=== PATIENT | male | born 1945 | race Caucasian/White ===

== ENCOUNTER 2024-03-29 12:29 | Emergency (ER) | payer MEDICARE, SELFPAY ==
[2024-03-29 12:35] VITALS: BP 141/67
[2024-03-29 12:56] VITALS: BP 135/71
[2024-03-29 13:00] VITALS: BP 128/65
[2024-03-29 13:08] LABS: % Basophils 0.2 % (0-2); % Eosinophils 0.2 % (0-6); % Immature Granulocytes 0.3 % (0-0.5); % Lymphocytes 14.4 % (20.5-51.1); % Monocytes 7.4 % (1.7-9.3); % Neutrophils 77.5 % (42.2-75.2); Absolute Lymphocytes 1.9 10^3/uL (1.2-3.4); Absolute Neutrophils 10.1 10^3/uL (1.4-6.5); Hematocrit 43.8 % (39.0-52.0); Hemoglobin 14.7 g/dL (13.0-18.0); Mean Corp Hgb Conc. 33.6 g/dL (33.0-37.0); Mean Corpuscular Hgb 31.4 pg (27.0-31.0); Mean Corpuscular Volume 93.6 fL (80.0-94.0); Mean Platelet Volume 10.1 fL (7.4-10.4); Nucleated Red Blood Cells % 0 % (-); Platelet Count 221 10^3/uL (130-400); Red Blood Cell Count 4.68 10^6/uL (4.70-6.10); Red Cell Dist. Width 13.4 % (11.5-14.5)
--- NOTE | 2024-03-29 13:15 | ED.GENMED ---
History of Present Illness
General
Chief Complaint: Abdominal Pain
Source: patient, spouse and family (Daughter)
Exam Limitations: none
Time Seen by Provider: 03/29/24 12:44
Nursing documentation reviewed up to this point in time: agreed with
Travel History
Have you had any contact with someone who has COVID-19?: No
Do you have any symptoms of coronavirus? Fever > 100 degrees, chills, cough, shortness of breath, sore throat, loss of taste or smell, muscle aches, or headache?: No
History of Present Illness
History of Present Illness:
78-year-old male with past medical history of COPD, dementia, hyperlipidemia who presents with his family (spouse and daughter) from home for evaluation of a change in mental status. Family have noticed some increasing level of confusion over the
past 3 days. This culminated yesterday in patient wandering away from home and not being able to find his way back�was ultimately found by police and escorted home; this has never happened to him before. They have noticed decreased appetite over
that period of time�they report despite pushing to eat he has not been taking food or beverage as much. This morning they noticed that he was increasingly weak/shaky and he was complaining to them all morning of lower abdominal pain and grabbing
his suprapubic region. They decided to bring him to the emergency room to be assessed. Here in the emergency room patient is very limited as a historian due to his dementia. When asked why he is here he says ' when asked why he is here he says 'I
just followed them here.' He denies any complaints on full review of systems including abdominal pain here.
Review of Systems
Review of Systems
Unable to obtain full review of systems at this time due to: dementia
Other source history: family
All Other Systems: Not applicable
Phy Exam
Physical Exam
Physical Exam:
General: Awake, alert, to person and place but not time; no acute distress
Head: Normocephalic, atraumatic
Eyes: Conjunctiva normal, EOMI, pupils equal round and reactive to light bilaterally
Throat: Airway intact, handling secretions
Neck: Trachea midline, supple without meningismus, no cervical spine tenderness
Lungs: Clear to auscultation bilaterally, no wheezing, rales, rhonchi
Heart: Regular rate and rhythm, no murmurs, gallops, or rubs
Abd: Soft, non distended, nontender to deep palpation with no palpable masses
Neuro: Cranial nerves grossly intact, speech fluid, no gross motor or sensory deficits
Skin: no rash or signs of trauma
Extremities: Atraumatic, moving all extremities equally, good pulses in his distal extremities
Scores
Heart Failure Risk
Heart Failure Risk Score: Not Applicable
Heart Score for Chest Pain Patients
STEMI patient?: Not applicable
Withdrawal Assessment of Alcohol
Withdrawal Assessment Completed?: Not applicable
Course
Orders/Labs/Results
Orders:
Orders
03/29/24 12:44
CT Abd/pelvis W Iv Cont Urgent
Comment:
Reason For Exam: lower abd pain
03/29/24 12:57
Complete Blood Count/With Diff Urgent
Comprehensive Metabolic Panel Urgent
03/29/24 13:03
CT Head W/o Iv Contrast Urgent
Comment:
Reason For Exam: change in mentation
03/29/24 13:20
Electrocardiogram (*1) Urgent
Reason for Study: Fatigue / Weakness
EKG- Treatment ONCE
03/29/24 13:21
Bladder Scan- Treatment ONCE
0.9% Sodium Chloride 500 ml [Nss] 500 ml IV BOLUS
03/29/24 14:33
CR Chest - 2 Views Urgent
Comment:
Reason For Exam: confusion, eval for pna
03/29/24 14:49
Urinalysis Reflex To Culture Urgent
Date Specimen was Collected: 03/29/24
Time Specimen was Collected: 14:47
Urine Microscopic Reflex Cult Urgent
03/29/24 16:52
Cephalexin Monohydrate [Keflex] 500 mg PO NOW STA
Tamsulosin [Flomax] 0.4 mg PO NOW STA
Abnormal Lab Results
03/29/24 03/29/24
12:57 14:49
WBC 13.0 H 10^3/uL
(4.8-10.8)
RBC 4.68 L 10^6/uL
(4.70-6.10)
MCH 31.4 H pg
(27.0-31.0)
Absolute Neuts (auto) 10.1 H 10^3/uL
(1.4-6.5)
Absolute Monos (auto) 1.0 H 10^3/uL
(0.1-0.6)
Neutrophils % 77.5 H %
(42.2-75.2)
Lymphocytes % 14.4 L %
(20.5-51.1)
BUN 24 H mg/dl
(9-20)
Creatinine 1.6 H mg/dL
(0.7-1.3)
Glucose 106 H mg/dl
(70-99)
Alkaline Phosphatase 130 H U/L
(38-126)
Ur Occult Blood Reflex 1+ A
(Negative)
03/29/24 12:57
03/29/24 12:57
Vital Signs
Initial and Last Documented VS:
Initial Vital Signs
Temp Pulse Resp BP Pulse Ox
36.8 C 60 20 141/67 100
03/29/24 12:35 03/29/24 12:35 03/29/24 12:35 03/29/24 12:35 03/29/24 12:35
Last Documented Vital Signs
Temp Pulse Resp BP Pulse Ox
36.8 C 70 24 120/59 100
03/29/24 12:35 03/29/24 14:51 03/29/24 14:51 03/29/24 14:51 03/29/24 13:30
MDM/Problems Addressed
Differential Diagnosis Includes:
Differential diagnosis is wide and includes but not limited to: Infection such as UTI or pneumonia, intra-abdominal infection; electrolyte derangement; brain mass or intracranial hemorrhage; progression of his chronic dementia; polypharmacy
MDM/Problems Addressed:
78-year-old male presents with his family from home for evaluation of increasing confusion, decreased appetite over the past 2 or 3 days now complaining of some abdominal pain today and increasingly weak/shaky. Vital signs here are all within
normal limits. Physical exam as above. Plan to place an IV check labs including CBC CMP, urinalysis. Check an EKG. Will send for CT head, CT abdomen and pelvis. Will monitor closely and reassess after the above.
Labs reviewed: CBC shows slight leukocytosis to 13, CMP shows creatinine 1.6�there is no baseline available for comparison. Patient's urinalysis shows no signs of infection only +1 blood on urine dip. His chest x-ray shows no pneumonia. CT head
negative for anything acute he does have an old stroke. CT of the abdomen/pelvis shows 7 mm stone at the left UVJ likely accounts for his abdominal pain. Given size and abnormal renal function I did discuss this case with urology�unfortunately the
chronicity of patient's elevated creatinine is unclear. Fortunately he has no signs of sepsis�she has no tachycardia, tachypnea, fever; he has a very slight leukocytosis likely reactive. Family preference is to take patient home they do not feel
admission to the hospital is necessary. Urology is able to see patient in the office tomorrow to follow-up and if still symptomatic can schedule for OR on . Family feels very comfortable with this plan. Urology recommending Flomax and
prophylactic antibiotic, pain control as needed. Spoke with family in detail about this and about low threshold for return. They indicated understanding. All questions answered.
Chronic conditions affecting care:
Dementia
*Radiology
Radiology exam reviewed: radiology read reviewed
*Pulse Oximetry
Patient hypoxic: no
*EKG
Interpreted by ED Provider?: Yes
Heart Rate: 56
Rate: bradycardiac
Rhythm: sinus
[place]: normal axis
Interval: normal interval
QRS Pattern: normal QRS
Ischemia: no ischemia
*Critical Care Note
Total Time (30-74mins, 75-104mins- exclusive of procedures): Not Applicable
Data Reviewed
Source: patient, spouse and family
Patient Management
Social determinants of health affecting care: Strong social support
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
Escalation/DeEscalation of care consider admission/obs:
Considered admission but using shared decision making with family opted for discharge with a strong follow-up plan
ED Attending Note
-
Portions of this chart may have been created with voice recognition software.� Occasional wrong word or��sound alike� substitutions may have occurred due to the inherent limitations of voice recognition software.
Discharge Plan
Departure
Patient Disposition: Home (Routine Discharge)
Date of Disposition: 03/29/24
Time of Disposition: 16:55
Patient with high blood pressure during this ER visit?: No
Discharge Problem:
Left nephrolithiasis
Instructions: Kidney Stones (DC)
Prescriptions:
New
cephalexin 500 mg capsule
500 mg PO BID 7 Days Qty: 14 0RF
tamsulosin [Flomax] 0.4 mg capsule
0.4 mg PO DAILY 7 Days Qty: 7 0RF
acetaminophen 500 mg tablet
1,000 mg PO Q6H PRN (Reason: Pain) Qty: 30 0RF
Referrals:
Young Lewis MD [Active] - Tomorrow
Monet Willis DO [Family Provider] -
Activity Restrictions/Additional Instructions:
You should call the urology office tomorrow 8:30 AM and tell them that you were in the emergency room and that Dr. Lewis wanted you to call to be scheduled for an emergency appointment tomorrow--they will tell you what time to come to the office.
You should take the medicines as prescribed in the emergency room. If your pain is very severe and you cannot control it at home or if any fever develops or significant confusion or any other concerning symptoms please return immediately to the
emergency room.
Thank you for visiting the Emergency Department at [facility].
1. Please schedule a follow up appointment as directed. Call first thing tomorrow morning to make an appointment.
2. If indicated, please take your medications as instructed and indicated on discharge paperwork.
3. If any of your symptoms do not improve, or persist, or become more severe within 6-12 hours, please return to the emergency department for further care.
4. Please return to the emergency department if you develop a headache, neck pain/stiffness, fever greater than 100.4F, chest pain, shortness of breath, persistent nausea, vomiting, slurred speech, difficulty walking, numbness/tingling, weakness,
signs of infection or any other symptoms that are worrisome to you.
Please call [phone] if you have any questions.
Interventions
Interventions:
*Risk Screen - Suicide Last Done: 03/29/24 12:45
*General Assessment Last Done: 03/29/24 13:03
*Neglect/Abuse Screening Last Done: 03/29/24 12:45
*ED COVID-19 Vaccine History Last Done: 03/29/24 13:03
VC-Ztikkd-[id number] Assessment Last Done: 03/29/24 12:58
Discharge Date and Time
Print Language: LITHUANIAN
[2024-03-29 13:17] LABS: ALT (SGPT) 41 U/L (0-50); AST (SGOT) 32 U/L (17-59); Albumin 4.3 g/dl (3.5-5.0); Alkaline Phosphatase 130 U/L (38-126); Blood Urea Nitrogen 24 mg/dl (9-20); Calcium 9.6 mg/dl (8.4-10.2); Carbon Dioxide 28 mmol/L (22-30); Chloride 106 mmol/L (98-107); Glucose 106 mg/dl (70-99); Potassium 4.4 mmol/L (3.5-5.1); Sodium 140 mmol/L (135-145); Total Bilirubin 0.8 mg/dl (0.2-1.3); Total Protein 7.5 g/dl (6.3-8.2)
[2024-03-29] MEDS: NSS 500 IV (13:36)
[2024-03-29 14:51] VITALS: BP 120/59
[2024-03-29 15:07] LABS: Urine Albumin Negative (Neg - Trace); Urine Bilirubin Negative (Negative); Urine Character Clear (Clear); Urine Color Yellow; Urine Glucose Negative (Negative); Urine Ketone Negative (Negative); Urine Leukocyte Negative (Negative); Urine Nitrite Negative (Negative); Urine Occult Blood 1+ (Negative); Urine Specific Gravity 1.005 (<1.030); Urine Urobilinogen Negative (Neg - 1+)
[2024-03-29 15:18] LABS: Urine Red Blood Cell 0-2 /HPF (0-2); Urine White Cell 0-2 /HPF (0-5)
[2024-03-29 16:33] VITALS: BP 112/51
[2024-03-29 17:00] VITALS: BP 116/56
[2024-03-29] MEDS: FLOMAX 0.400000000000000022 MG PO (17:05)
[2024-03-29] MEDS: KEFLEX 500 MG PO (17:05)
== END 2024-03-29 17:16 | disposition home or self-care (01) ==
LOC: EMR 12:29
PROVIDERS: EMERGENCY PHYSICIAN Emergency Medicine; FAMILY PHYSICIAN Family Medicine
DX: N20.0 Calculus of kidney (principal); F03.90 Unspecified dementia, unspecified severity, without behavioral disturbance, psychotic disturbance, mood disturbance, and anxiety
CPT/HCPCS: 99285; 96360; 70450; 71046; 74177; 80053; 81003; 81015; 85025; 93005; Q9967

== ENCOUNTER → 2024-04-11 13:21 | Outpatient (REF) | payer MEDICARE, SELFPAY | LOC: HWRAD 13:21 | PROVIDERS: ATTENDING PHYSICIAN Surgery; FAMILY PHYSICIAN Family Medicine | DX: N13.2 Hydronephrosis with renal and ureteral calculous obstruction (principal) | CPT/HCPCS: 74018 ==

== ENCOUNTER → 2024-04-14 13:20 | Outpatient (REF) | payer MEDICARE, SELFPAY | LOC: CLAB 13:20 | PROVIDERS: ATTENDING PHYSICIAN Surgery | DX: N13.2 Hydronephrosis with renal and ureteral calculous obstruction (principal) | CPT/HCPCS: 82365 ==

== ENCOUNTER → 2024-07-04 10:49 | Outpatient (REF) | payer MEDICARE, SELFPAY | LOC: HWRAD 10:49 | PROVIDERS: ATTENDING PHYSICIAN Surgery; FAMILY PHYSICIAN Family Medicine | DX: N13.2 Hydronephrosis with renal and ureteral calculous obstruction (principal) | CPT/HCPCS: 76775 ==